=== PATIENT | female | born 1945 | race Caucasian/White ===

== ENCOUNTER 2022-01-06 08:16 | Outpatient (CLI) | payer MEDICARE, SELFPAY ==
[2022-01-06 14:20] LABS: Chloride* 102 mmol/L (96-114); Potassium* 4.3 mmol/L (3.6-5.1); Sodium* 138 mmol/L (135-149)
[2022-01-06 14:23] LABS: Blood Urea Nitrogen* 21 mg/dL (7-30); Carbon Dioxide* 28 mmol/L (20-32); Creatinine* 0.9 mg/dL (0.5-1.5); Estimated Glomerular Filt Rate 67 ml/min
[2022-01-06 14:24] LABS: Calcium* 9.4 mg/dL (8.4-10.6); Glucose* 167 mg/dL (60-115)
[2022-01-06 14:39] LABS: Ferritin* 42.4 ng/mL (11.1-264.0)
== END 2022-01-06 08:17 | disposition home or self-care (01) ==
PROVIDERS: PCP Emergency Medicine; Visit Provider Emergency Medicine
DX: N18.30 Chronic kidney disease, stage 3 unspecified (principal); D50.9 Iron deficiency anemia, unspecified
CPT/HCPCS: 80048; 82728

== ENCOUNTER 2022-03-04 13:12 | Outpatient (CLI) | payer MEDICARE, SELFPAY ==
[2022-03-04 12:26] LABS: Chloride* 103 mmol/L (96-114); Sodium* 138 mmol/L (135-149)
[2022-03-04 12:27] LABS: Potassium* 4.5 mmol/L (3.6-5.1)
[2022-03-04 12:28] LABS: Cholesterol* 136 mg/dL (90-199)
[2022-03-04 12:29] LABS: Alkaline Phosphatase* 86 U/L (40-150); Aspartate Amino Transferase* 21 U/L (12-35); Bilirubin Total* 0.7 mg/dL (0.1-1.5); Blood Urea Nitrogen* 26 mg/dL (7-30); Calcium* 9.4 mg/dL (8.4-10.6); Carbon Dioxide* 24 mmol/L (20-32); Creatinine* 0.9 mg/dL (0.5-1.5); Estimated Glomerular Filt Rate 67 ml/min; Glucose* 133 mg/dL (60-115); Total Protein* 6.5 g/dL (6.0-8.3); Triglycerides* 104 mg/dL (40-149)
[2022-03-04 12:30] LABS: Alanine Aminotransferase* 20 U/L (4-35); HDL Cholesterol* 55 mg/dL (>=50); LDL Cholesterol Calculated 60 mg/dL (<100)
[2022-03-04 12:37] LABS: Vitamin D 25 Hydroxy* 24 ng/mL (30-80)
[2022-03-04 12:54] LABS: Creatinine Urine 85.1 mg/dL
[2022-03-04 13:12] LABS: Microalbumin Creatinine Ratio 310 mg/g (0-30); Microalbumin Urine 27 mg/dL
== END 2022-03-04 13:13 | disposition home or self-care (01) ==
PROVIDERS: PCP Emergency Medicine; Visit Provider Emergency Medicine
DX: D50.9 Iron deficiency anemia, unspecified (principal); E11.9 Type 2 diabetes mellitus without complications; E55.9 Vitamin D deficiency, unspecified; E78.5 Hyperlipidemia, unspecified
CPT/HCPCS: 80053; 80061; 82043; 82306; 82570

== ENCOUNTER 2022-11-24 08:11 | Outpatient (CLI) | payer MEDICARE, SELFPAY | END 2022-11-24 08:12 | disposition home or self-care (01) | PROVIDERS: PCP Emergency Medicine; Visit Provider Emergency Medicine | DX: E11.9 Type 2 diabetes mellitus without complications (principal); D50.9 Iron deficiency anemia, unspecified; R80.9 Proteinuria, unspecified; E55.9 Vitamin D deficiency, unspecified; E66.9 Obesity, unspecified; I10 Essential (primary) hypertension; E78.5 Hyperlipidemia, unspecified; N18.30 Chronic kidney disease, stage 3 unspecified | CPT/HCPCS: 80048; 82043; 82570; 82728 ==

== ENCOUNTER 2023-01-24 12:25 | Outpatient (CLI) | payer MEDICARE, SELFPAY | END 2023-01-24 12:26 | disposition home or self-care (01) | LOC: LKVREF 12:28 | PROVIDERS: PCP Emergency Medicine; Visit Provider Emergency Medicine | DX: D50.9 Iron deficiency anemia, unspecified (principal) | CPT/HCPCS: 82728 ==

== ENCOUNTER 2024-09-14 20:28 | Outpatient (CLI) | payer MEDICARE, SELFPAY | END 2024-09-14 20:29 | disposition home or self-care (01) | LOC: AMB 09-16 13:09 | PROVIDERS: PCP Emergency Medicine; Visit Provider Family Medicine | DX: R51.9 Headache, unspecified (principal); H57.11 Ocular pain, right eye | CPT/HCPCS: A0425; A0429 ==